=== PATIENT | male | born 1940 | race Caucasian/White ===

== ENCOUNTER 2017-02-04 10:30 | Emergency (ER) | payer BC, MEDICARE ==
--- NOTE | 2017-02-04 11:18 | ER Document Report ---
ED Medical Screen (RME) - General Chief Complaint: Urinary Problem Stated Complaint: BLOOD IN URINE Time Seen by Provider: 02/04/17 11:17 Notes: Patient states he has a history of bladder cancer with bladder tumors removed approximately 3 years ago. He denies any chemo or radiation. He states this morning he woke up with blood in his urine. He states he also feels a pressure and like he is unable to empty his bladder. He states that he recommends we put in a catheter. He denies being on any blood thinners. TRAVEL OUTSIDE OF THE [place] IN LAST 30 DAYS: No - Related Data Allergies/Adverse Reactions: naproxen [From Naprosyn] Allergy (Verified 02/04/17 10:34) Past Medical History - Social History Chew tobacco use (# tins/day): No Frequency of alcohol use: None Drug Abuse: None Renal/ Medical History: Denies: Hx Peritoneal Dialysis Physical Exam - Vital signs Vitals: Temp Pulse Resp BP Pulse Ox 98.3 F 92 16 189/89 H 99 02/04/17 10:32 02/04/17 10:32 02/04/17 10:32 02/04/17 10:32 02/04/17 10:32 Course - Vital Signs Vital signs: Temp Pulse Resp BP Pulse Ox 98.3 F 92 16 189/89 H 99 02/04/17 10:32 02/04/17 10:32 02/04/17 10:32 02/04/17 10:32 02/04/17 10:32
[2017-02-04 11:54] LABS: ABSOLUTE BASOPHILS # (AUTO) 0.1 10^3/uL (0.0-0.2); ABSOLUTE EOSINOPHILS # (AUTO) 0.3 10^3/uL (0.0-0.6); ABSOLUTE LYMPHOCYTES (AUTO) 0.8 10^3/uL (0.5-4.7); ABSOLUTE MONOCYTES (AUTO) 0.9 10^3/uL (0.1-1.4); ABSOLUTE NEUT (AUTO) 9.2 10^3/uL (1.7-8.2); BASOPHILS % (AUTO) 0.5 % (0-2); EOSINOPHILS % (AUTO) 2.4 % (0-6); HEMATOCRIT 38.9 % (37.9-51.0); HEMOGLOBIN 13.2 g/dL (13.5-17.0); HGB HCT DIFFERENCE 0.7; LYMPHOCYTES % (AUTO) 6.8 % (13-45); MEAN CORPUSCULAR HEMOGLOBIN 28.8 pg (27.0-33.4); MEAN CORPUSCULAR HGB CONC 33.8 g/dL (32.0-36.0); MEAN CORPUSCULAR VOLUME 85 fl (80-97); MONOCYTES % (AUTO) 8.2 % (3-13); RED BLOOD COUNT 4.58 10^6/uL (4.35-5.55); RED CELL DISTRIBUTION WIDTH 13.5 % (11.5-14.0); SEGMENTED NEUTROPHILS % (AUTO) 82.1 % (42-78); WHITE BLOOD COUNT 11.2 10^3/uL (4.0-10.5)
[2017-02-04 12:33] LABS: ALANINE AMINOTRANSFERASE 36 U/L (21-72); ALBUMIN 4.5 g/dL (3.5-5.0); ALKALINE PHOSPHATASE 127 U/L (38-126); ANION GAP 13 (5-19); ASPARTATE AMINO TRANSFERASE 48 U/L (17-59); BILIRUBIN,DIRECT 0.3 mg/dL (0.0-0.4); BILIRUBIN,TOTAL 0.4 mg/dL (0.2-1.3); BLOOD UREA NITROGEN 18 mg/dL (7-20); CALCIUM 9.4 mg/dL (8.4-10.2); CARBON DIOXIDE 30 mmol/L (22-30); CHLORIDE 99 mmol/L (98-107); CREATININE RESULT 0.71 mg/dL (0.52-1.25); GLUCOSE 135 mg/dL (75-110); POTASSIUM 4.2 mmol/L (3.6-5.0); SODIUM 141.8 mmol/L (137-145); TOTAL PROTEIN 8.4 g/dL (6.3-8.2)
--- NOTE | 2017-02-04 12:55 | ER Document Report ---
ED GI/ - General Chief Complaint: Urinary Problem Stated Complaint: BLOOD IN URINE Time Seen by Provider: 02/04/17 11:17 Notes: Patient is a 76-year-old male who presents emergency who presents emergency department via EMS stretcher with a chief complaint of gross hematuria. Patient has a history of bladder cancer status post resection 10 years ago without any chemoradiation and was following with urology up until 2011. Patient states since then he has not seen a urologist or had any issues up until 3 weeks ago when his urine started looking like pink lemonade and then over the past 2 days has been gross blood. He otherwise denies any weakness, lethargy or any other associated symptoms. Does admit to mild bladder pressure. Past medical history is significant for significant osteoarthritis with associated neuropathy that is rendered the patient and mobile and not able to ambulate and is a significant fall risk. Patient able is not able to bear weight at all or ambulate. Family states that they are not able to get him into a car safely due to previous history of falls. Past medical history significant for hypertension and yuy-[id number] diabetes TRAVEL OUTSIDE OF THE [place] IN LAST 30 DAYS: No - Related Data Allergies/Adverse Reactions: naproxen [From Naprosyn] Allergy (Verified 02/04/17 10:34) Past Medical History - Social History Smoking Status: Former Smoker Chew tobacco use (# tins/day): No Frequency of alcohol use: None Drug Abuse: None Family History: Reviewed & Not Pertinent Patient has suicidal ideation: No Patient has homicidal ideation: No - Past Medical History Cardiac Medical History: Reports: Hx Hypertension Endocrine Medical History: Reports: Hx Diabetes Mellitus Type 2 Renal/ Medical History: Denies: Hx Peritoneal Dialysis Review of Systems - Review of Systems Constitutional: No symptoms reported Cardiovascular: No symptoms reported Respiratory: No symptoms reported Gastrointestinal: No symptoms reported Genitourinary: See HPI Musculoskeletal: No symptoms reported -: Yes All other systems reviewed and negative Physical Exam - Vital signs Vitals: Temp Pulse Resp BP Pulse Ox 98.3 F 92 16 189/89 H 99 02/04/17 10:32 02/04/17 10:32 02/04/17 10:32 02/04/17 10:32 02/04/17 10:32 - Notes Notes: PHYSICAL EXAM GENERAL: Alert, interacts well. LUNGS: Clear to auscultation bilaterally, no wheezes, rales, or rhonchi. No respiratory distress. HEART: Regular rate and rhythm. No murmurs, gallops, or rubs. ABDOMEN: Soft, moderate distention, nontender. No guarding, rebound, or rigidity.. Bowel sounds present in all 4 quadrants. Suprapubic area nontender without palpable masses no inguinal lymphadenopathy Male : Deferred EXTREMITIES: Moves all 4 extremities spontaneously. No edema, radial and dorsalis pedis pulses 2/4 bilaterally. No cyanosis. NEUROLOGICAL: Alert and oriented x4. Normal speech. PSYCH: Normal affect, normal mood. SKIN: Warm, dry, normal turgor.stage 2 decubitus ulcer on right sacrum Course - Re-evaluation Re-evalutation: 02/04/17 16:23 Patient is a 76-year-old male who is hemodynamically stable, no acute distress and afebrile. Presentation is concerning for return of possible bladder mass given painless hematuria. CT the abdomen and pelvis reveals a 5 cm necrotic mass with presence of leukoesterase in the urine. Discussed results with patient who is requesting to be discharged home and will follow up with urology in [place] tomorrow. I did offer to consult with urology in [place] patient is declining. Patient states that he does want to follow-up with a urologist in [place] due to issues with transportation and not able to get in and out of his family members car due to issues with falls. Patient is not able to bear weight at all due to significant neuropathy. Did discuss case with oncologist global expansion sales director Dr. Cline who agrees with plan for urology consultation as an outpatient and otherwise to follow-up with her in the office. Discussed strict return precautions that would indicate return to the emergency department. Family and patient are agreeable with plan stable for discharge home. - Vital Signs Vital signs: Temp Pulse Resp BP Pulse Ox 97.8 F 88 16 182/82 H 99 02/04/17 17:18 02/04/17 17:18 02/04/17 17:18 02/04/17 17:18 02/04/17 17:18 - Laboratory Result Diagrams: 02/04/17 11:39 02/04/17 11:39 Laboratory results interpreted by me: 02/04/17 02/04/17 02/04/17 11:39 11:39 11:39 WBC 11.2 H Hgb 13.2 L Seg Neutrophils % 82.1 H Lymphocytes % 6.8 L Absolute Neutrophils 9.2 H Glucose 135 H Alkaline Phosphatase 127 H Total Protein 8.4 H Urine Protein 100 H Urine Blood LARGE H Ur Leukocyte Esterase TRACE H Urine Ascorbic Acid 20 H - Diagnostic Test Radiology reviewed: Image reviewed, Reports reviewed Discharge - Discharge Clinical Impression: Bladder mass Hematuria Qualifiers: Hematuria type: gross Qualified Code(s): R31.0 - Gross hematuria Condition: Stable Disposition: HOME, SELF-CARE Additional Instructions: There is evidence of a bladder mass on your CT scan today. This is concerning for cancer given your history. Please follow-up with urology tomorrow for biopsy.. Unable to schedule appointment then please touch base with urology. Otherwise please follow-up with Dr. Slade whose contact information is listed below. Please return to the emergency department with any worsening bleeding, lightheadedness, weakness. [facility] Address: [address] [place] [address] Prescriptions: Cephalexin Monohydrate [Keflex 500 mg Capsule] 500 mg PO BID 5 Days capsule Referrals: ZEESHAN KENDRICK MD [Primary Care Provider] - Follow up as needed SHANNA SLADE MD [ACTIVE STAFF] - Follow up in 1 week [facility] [Provider Group] - Follow up tomorrow
[2017-02-04 13:24] LABS: APPEARANCE,URINE CLOUDY; BILIRUBIN,URINE NEGATIVE (NEGATIVE); GLUCOSE, URINE NEGATIVE (NEGATIVE); KETONES,URINE NEGATIVE (NEGATIVE); LEUKOCYTE ESTERASE,URINE TRACE (NEGATIVE); NITRITE,URINE NEGATIVE (NEGATIVE); PROTEIN,URINE 100 mg/dL (NEGATIVE); URINE SPECIFIC GRAVITY 1.014; UROBILINOGEN,URINE NEGATIVE mg/dL (<2.0)
--- NOTE | 2017-02-04 15:38 | RADIOLOGY REPORT (SQ) ---
EXAM DESCRIPTION: CT ABD/PELVIS WITH IV ONLY COMPLETED DATE/TIME: 02/04/2017 3:04 pm REASON FOR STUDY: painless hematuria with h/o bladder ca COMPARISON: None. TECHNIQUE: CT scan of the abdomen and pelvis performed using helical scanning technique with dynamic intravenous contrast injection. No oral contrast. Images reviewed with lung, soft tissue, and bone windows. Reconstructed coronal and sagittal MPR images reviewed. Delayed images for evaluation of the urinary system also acquired. All images stored on PACS. All CT scanners at this facility use dose modulation, iterative reconstruction, and/or weight based d osing when appropriate to reduce radiation dose to as low as reasonably achievable (ALARA). [facility]: Dose Right [facility]: CareDose [facility]: Dose Right [facility]: Teradose 4D [facility]: [employer] CONTRAST TYPE AND DOSE: contrast/concentration: Isovue 370.00 mg/ml; Total Contrast Delivered: 81.0 ml; Total Saline Delivered: 45.0 ml RENAL FUNCTION: BUN 18 creatinine 0.7 RADIATION DOSE: CT Rad equipment meets quality standard of care and radiation dose reduction techniq ues were employed. CTDIvol: 16.6 - 19.4 mGy. DLP: 2111 mGy-cm.. LIMITATIONS: Positioning. FINDINGS: LOWER CHEST: No significant findings. No nodules or infiltrates. LIVER: Normal size. No masses. No dilated ducts. SPLEEN: Normal size. No focal lesions. PANCREAS: No masses. No significant calcifications. No adjacent inflammation or peripancreatic fluid collections. Pancreatic duct not dilated. GALLBLADDER: Surgically absent. ADRENAL GLANDS: No significant masses or asymmetry. RIGHT KIDNEY AND URETER: No solid masses. No significant calcifications. No hydronephrosis or hyd roureter. LEFT KIDNEY AND URETER: No solid masses. No significant calcifications. No hydronephrosis or hydr oureter. AORTA AND VESSELS: No aneurysm. RETROPERITONEUM: No retroperitoneal adenopathy, hemorrhage or masses. BOWEL AND PERITONEAL CAVITY: No masses or inflammatory changes. No free fluid or peritoneal masses. APPENDIX: Normal. PELVIS: Heterogeneous partially necrotic mass urinary bladder wall measuring about 5 cm in diameter. Indistinct tissue planes between the mass, prostate and seminal vesicles. No pelvic adenopathy. ABDOMINAL WALL: No masses. No hernias. BONES: No acute findings. OTHER: No other significant finding. IMPRESSION: Intrinsic bladder wall mass. No adenopathy. TECHNICAL DOCUMENTATION: JOB ID: [id number] Quality ID # [id number]: Final reports with documentation of one or more dose reduction techniques (e.g., Au tomated exposure control, adjustment of the mA and/or kV according to patient size, use of iterative reconstruction technique) 2010 [employer]- All Rights Reserved
[2017-02-04] MEDS ORDERED: CEPHALEXIN 500 MG CAPSULE PO ONE (16:32)
[2017-02-04 17:20] VITALS: BP 182/82
== END 2017-02-04 17:27 | disposition home or self-care (01) ==
LOC: ER 10:30
DX: R31.0 Gross hematuria (principal); N32.89 Other specified disorders of bladder; Z85.51 Personal history of malignant neoplasm of bladder; Z90.6 Acquired absence of other parts of urinary tract; M19.90 Unspecified osteoarthritis, unspecified site; E11.40 Type 2 diabetes mellitus with diabetic neuropathy, unspecified; Z79.4 Long term (current) use of insulin; Z91.81 History of falling; L89.152 Pressure ulcer of sacral region, stage 2; Z88.8 Allergy status to other drugs, medicaments and biological substances; Z87.891 Personal history of nicotine dependence
CPT/HCPCS: 99284; 36415; 87086; 85025; 80053; 81001; 74177; A9270

== ENCOUNTER → 2017-05-10 | Outpatient (CLI) | payer MEDICARE ==
[2017-05-10 10:48] LABS: ABSOLUTE BASOPHILS # (AUTO) 0.1 10^3/uL (0.0-0.2); ABSOLUTE EOSINOPHILS # (AUTO) 0.2 10^3/uL (0.0-0.6); ABSOLUTE LYMPHOCYTES (AUTO) 0.9 10^3/uL (0.5-4.7); ABSOLUTE MONOCYTES (AUTO) 0.7 10^3/uL (0.1-1.4); ABSOLUTE NEUT (AUTO) 8.2 10^3/uL (1.7-8.2); BASOPHILS % (AUTO) 0.7 % (0-2); EOSINOPHILS % (AUTO) 2.1 % (0-6); HEMATOCRIT 34.7 % (37.9-51.0); HEMOGLOBIN 11.5 g/dL (13.5-17.0); LYMPHOCYTES % (AUTO) 8.5 % (13-45); MEAN CORPUSCULAR HEMOGLOBIN 27.3 pg (27.0-33.4); MEAN CORPUSCULAR HGB CONC 33.2 g/dL (32.0-36.0); MEAN CORPUSCULAR VOLUME 82 fl (80-97); MONOCYTES % (AUTO) 6.8 % (3-13); PLATELET COUNT 328 10^3/uL (150-450); RED BLOOD COUNT 4.21 10^6/uL (4.35-5.55); RED CELL DISTRIBUTION WIDTH 13.5 % (11.5-14.0); SEGMENTED NEUTROPHILS % (AUTO) 81.9 % (42-78); TOTAL CELLS COUNTED % (AUTO) 100 %
[2017-05-10 11:13] LABS: BLOOD UREA NITROGEN 21 mg/dL (7-20)
== END ==
LOC: LAB 10:29
PROVIDERS: ATTEND Radiology Radiation Oncology
DX: C67.2 Malignant neoplasm of lateral wall of bladder (principal); C67.3 Malignant neoplasm of anterior wall of bladder
CPT/HCPCS: 36415; 82565; 84520; 85025

== ENCOUNTER → 2017-05-31 | Outpatient (CLI) | payer MEDICARE ==
[2017-05-31 10:54] LABS: BLOOD UREA NITROGEN 27 mg/dL (7-20)
== END ==
LOC: LAB 09:58
PROVIDERS: ATTEND Radiology Radiation Oncology
DX: C67.2 Malignant neoplasm of lateral wall of bladder (principal); C67.3 Malignant neoplasm of anterior wall of bladder
CPT/HCPCS: 36415; 82565; 84520

== ENCOUNTER 2017-06-10 09:53 | Emergency (ER) | payer MEDICARE ==
[2017-06-10] MEDS ORDERED: MORPHINE SULFATE 10 MG/ML INJ IV ONE (10:16)
--- NOTE | 2017-06-10 10:17 | ER Document Report ---
ED Medical Screen (RME) - General Chief Complaint: Abdominal Pain Stated Complaint: ABDOMINAL PAIN Time Seen by Provider: 06/10/17 10:15 Notes: Patient states he has a history of a bladder tumor. He states he received radiation for this tumor this morning. He states he has been having blood in his urine for several months starting yesterday he is having severe lower abdominal cramping and the sensation of having to have a bowel movement. He is also had 3 bowel movements since last night. TRAVEL OUTSIDE OF THE [place] IN LAST 30 DAYS: No - Related Data Allergies/Adverse Reactions: naproxen [From Naprosyn] Allergy (Verified 02/04/17 10:34) Past Medical History - Social History Chew tobacco use (# tins/day): No Frequency of alcohol use: None Drug Abuse: None - Past Medical History Cardiac Medical History: Reports: Hx Hypertension Endocrine Medical History: Reports: Hx Diabetes Mellitus Type 2 Renal/ Medical History: Denies: Hx Peritoneal Dialysis Physical Exam - Vital signs Vitals: Pulse Resp BP Pulse Ox 99 22 H 178/83 H 98 06/10/17 10:00 06/10/17 10:00 06/10/17 10:00 06/10/17 10:00 Course - Vital Signs Vital signs: Temp Pulse Resp BP Pulse Ox 99 20 178/83 H 98 06/10/17 10:00 06/10/17 10:07 06/10/17 10:00 06/10/17 10:00
[2017-06-10] MEDS ORDERED: HYDROMORPHONE HCL INJ/PF 2 MG/ML AMPULE IV ONE ×4 (10:20→18:38)
[2017-06-10 10:44] LABS: HEMATOCRIT 24.6 % (37.9-51.0); HEMOGLOBIN 8.3 g/dL (13.5-17.0); MEAN CORPUSCULAR HEMOGLOBIN 27.1 pg (27.0-33.4); MEAN CORPUSCULAR HGB CONC 33.5 g/dL (32.0-36.0); MEAN CORPUSCULAR VOLUME 81 fl (80-97); PLATELET COUNT 500 10^3/uL (150-450); RED BLOOD COUNT 3.05 10^6/uL (4.35-5.55); RED CELL DISTRIBUTION WIDTH 13.4 % (11.5-14.0); WHITE BLOOD COUNT 16.5 10^3/uL (4.0-10.5)
[2017-06-10 11:10] LABS: ALANINE AMINOTRANSFERASE 28 U/L (21-72); ALBUMIN 3.8 g/dL (3.5-5.0); ALKALINE PHOSPHATASE 99 U/L (38-126); ASPARTATE AMINO TRANSFERASE 24 U/L (17-59); BILIRUBIN,DIRECT 0.2 mg/dL (0.0-0.4); BILIRUBIN,TOTAL 0.2 mg/dL (0.2-1.3); BLOOD UREA NITROGEN 40 mg/dL (7-20); CALCIUM 9.6 mg/dL (8.4-10.2); CARBON DIOXIDE 20 mmol/L (22-30); CHLORIDE 100 mmol/L (98-107); GLUCOSE 134 mg/dL (75-110); POTASSIUM 5.1 mmol/L (3.6-5.0); SODIUM 140.9 mmol/L (137-145); TOTAL PROTEIN 7.5 g/dL (6.3-8.2)
[2017-06-10 11:16] LABS: ANION GAP 21 (5-19)
[2017-06-10 11:28] LABS: ABSOLUTE LYMPHOCYTES# (MANUAL) 1.3 10^3/uL (0.5-4.7); ABSOLUTE NEUTROPHILS# (MANUAL) 13.9 10^3/uL (1.7-8.2); BASOPHILS % (MANUAL) 2 % (0-2); EOSINOPHILS % (MANUAL) 0 % (0-6); LYMPHOCYTES % (MANUAL) 8 % (13-45); MONOCYTES % (MANUAL) 6 % (3-13); SEGMENTED NEUTROPHILS % (MAN) 84 % (42-78); TOTAL CELLS COUNTED 100
[2017-06-10 11:29] LABS: TOXIC GRANULATION SLIGHT
[2017-06-10 11:30] LABS: HYPOCHROMASIA SLIGHT; PLATELET COMMENT INCREASED; POLYCHROMASIA SLIGHT; TOXIC VACUOLATION PRESENT
[2017-06-10] MEDS ORDERED: NORMAL SALINE 1000 ML 1,000 ML IV PRN (12:13)
[2017-06-10] MEDS ORDERED: LIDOCAINE 2% URO-JET 5 ML KIT MM ONE ×2 (12:13→12:57)
--- NOTE | 2017-06-10 12:28 | ER Document Report ---
ED GI/ - General Chief Complaint: Abdominal Pain Stated Complaint: ABDOMINAL PAIN Time Seen by Provider: 06/10/17 10:15 Mode of Arrival: Wheelchair Information source: Patient, Relative - TRAVEL OUTSIDE OF THE [place] IN LAST 30 DAYS: No - HPI Patient complains to provider of: Abdominal pain Notes: 06/10/17 12:22 Patient is here with complaints of lower abdominal pain. The patient has a history of bladder cancer. He has had partial tumor removal and is currently undergoing radiation therapy. He had his first radiation treatment today. Patient is here in the emergency department with complaints of significant lower abdominal pain. He states that when he urinates, is typically just a few drips of blood. Feels like he is not able to pass any actual urine. He denies any fevers. Denies any nausea, vomiting, diarrhea. No constipation. No chest pain or shortness of breath. He was directed to come the emergency department by his radiation doctor for evaluation and treatment of his pain. - Related Data Allergies/Adverse Reactions: naproxen [From Naprosyn] Allergy (Verified 02/04/17 10:34) Past Medical History - Social History Smoking Status: Former Smoker Chew tobacco use (# tins/day): No Frequency of alcohol use: None Drug Abuse: None Family History: Reviewed & Not Pertinent Patient has suicidal ideation: No Patient has homicidal ideation: No - Past Medical History Cardiac Medical History: Reports: Hx Hypertension Endocrine Medical History: Reports: Hx Diabetes Mellitus Type 2 Renal/ Medical History: Denies: Hx Peritoneal Dialysis Review of Systems - Review of Systems -: Yes All other systems reviewed and negative Physical Exam - Vital signs Vitals: Pulse Resp BP Pulse Ox 99 22 H 178/83 H 98 06/10/17 10:00 06/10/17 10:00 06/10/17 10:00 06/10/17 10:00 - Notes Notes: GENERAL: alert, cooperative, nontoxic, no distress. HEAD: normocephalic, atraumatic EYES: conjunctiva pink without discharge, no external redness or swelling. EARS: no external swelling, no external redness NOSE: atraumatic, no external swelling MOUTH/THROAT: mucous membranes moist and pink, posterior pharynx without erythema, swelling, exudate. No trismus or drooling. NECK: soft, supple, full range of motion, no meningismus. CHEST: no distress, lungs clear and equal throughout. No wheezing, rales, rhonchi. CARDIAC: regular rate and rhythm, no murmur, normal capillary refill, normal pulses. No peripheral edema noted. ABDOMEN: Soft, tenderness to the suprapubic area with palpable bladder distention. BACK: full range of motion, no CVA tenderness. EXTREMITIES: Weakness to the lower extremities which is chronic. Upper extremities full range of motion. NEURO: alert and oriented x 3, no focal deficits, full range of motion of all extremities. PYSCH: appropriate mood, affect. Patient is cooperative. SKIN: pink, warm, dry, no rash. Course - Re-evaluation Re-evalutation: 06/10/17 14:[address] Quintana which is the patient's urologist. I am awaiting a call back at this time. 06/10/17 16:38 Multiple multiple attempts to pass a urinary catheter were made. We were unsuccessful and passing a urinary catheter the patient continues to have worsening lower abdominal pain likely secondary to urinary obstruction from either his tumor or blood. Patient is noted to have a new anemia with a hemoglobin of 8, is noted to have a new renal failure with a creatinine of 2.5. Patient will require admission to the hospital for further evaluation and management of all of his symptoms. Unfortunately we do not have urology auto emissions technician at this time, therefore I am needing to transfer the patient to a facility that has urology available. I have called [facility] and am waiting for a return phone call at this time. The patient has been given medications for pain control as well as a dose of Rocephin due to his elevated white count and the potential for urinary tract infection is I am not able to test his urine to rule this out. Patient does not appear to be septic at this time is not tachycardic, febrile or hypotensive. 06/10/17 16:[address] Lopez, the urologist at [facility]. States that they will call us back with an admitting service but that he is happy to see the patient for urology service. 06/10/17 18:[address] Ann at [facility]. He has accepted the patient for admission. Patient will be transferred to [facility] for admission for his renal failure as well as consult by urology for urinary obstruction. Patient was noted to have a leukocytosis of 16-1/2. I am unable to obtain a urine specimen, therefore the patient was given Rocephin prophylactically. This point we are currently awaiting for a bed in order to transfer the patient. Attempting to keep the patient as comfortable as possible with pain medication, he was also given a dose of Ativan to help relax him. The patient as well as his family updated on all plans. - Vital Signs Vital signs: Temp Pulse Resp BP Pulse Ox 97.3 F 88 18 159/81 H 99 06/10/17 17:17 06/10/17 17:17 06/10/17 17:17 06/10/17 17:17 06/10/17 17:17 - Laboratory Result Diagrams: 06/10/17 10:25 06/10/17 10:25 Laboratory results interpreted by me: 06/10/17 06/10/17 10:25 10:25 WBC 16.5 H RBC 3.05 L Hgb 8.3 L Hct 24.6 L Plt Count 500 H Seg Neuts % (Manual) 84 H Lymphocytes % (Manual) 8 L Abs Neuts (Manual) 13.9 H Abs Basophils (Manual) 0.3 H Potassium 5.1 H Carbon Dioxide 20 L Anion Gap 21 H BUN 40 H Creatinine 2.41 H Est GFR ( Amer) 32 L Est GFR (Non-Af Amer) 26 L Glucose 134 H - Diagnostic Test Radiology reviewed: Image reviewed, Reports reviewed - CT the abdomen and pelvis shows increasing size in known bladder mass. Left adrenal mass, cannot rule out metastasis. Discharge - Discharge Clinical Impression: Acute retention of urine Bladder cancer Qualifiers: Bladder location: unspecified site Qualified Code(s): C67.9 - Malignant neoplasm of bladder, unspecified Renal failure Qualifiers: Renal failure chronicity: acute Acute renal failure type: unspecified Qualified Code(s): N17.9 - Acute kidney failure, unspecified Anemia Qualifiers: Anemia type: unspecified type Qualified Code(s): D64.9 - Anemia, unspecified Condition: Serious Disposition: [facility] Referrals: ZEESHAN KENDRICK MD [Primary Care Provider] - Follow up as needed
[2017-06-10] MEDS ORDERED: FENTANYL CITRATE INJ/PF 100 MCG/2 ML AMPUL IV ONE (12:57)
--- NOTE | 2017-06-10 13:35 | RADIOLOGY REPORT (SQ) ---
EXAM DESCRIPTION: CT ABD/PELVIS NO ORAL OR IV COMPLETED DATE/TIME: 06/10/2017 1:13 pm REASON FOR STUDY: low abdo pain, hx of bladder ca COMPARISON: 02/04/2017 TECHNIQUE: CT scan of the abdomen and pelvis performed without intravenous or oral contrast. Images reviewed with lung, soft tissue, and bone windows. Reconstructed coronal and sagittal MPR images revi ewed. All images stored on PACS. All CT scanners at this facility use dose modulation, iterative reconstruction, and/or weight based d osing when appropriate to reduce radiation dose to as low as reasonably achievable (ALARA). [facility]: Dose Right [facility]: CareDose [facility]: Dose Right [facility]: Teradose 4D [facility]: [employer] RADIATION DOSE: CT Rad equipment meets quality standard of care and radiation dose reduction techniq ues were employed. CTDIvol: 13.4 mGy. DLP: 823 mGy-cm.mGy. LIMITATIONS: None. FINDINGS: LOWER CHEST: No acute findings. NON-CONTRASTED LIVER, SPLEEN, ADRENALS: New left adrenal nodule measuring about 2.7 cm and 39 HU. PANCREAS: No masses. No peripancreatic inflammatory changes. GALLBLADDER: Surgically absent. RIGHT KIDNEY AND URETER: No suspicious masses. Assessment limited by lack of IV contrast. Renal juve culi measuring up to about 10 mm. No hydronephrosis or hydroureter. LEFT KIDNEY AND URETER: No suspicious masses. Assessment limited by lack of IV contrast. No signifi cant calcifications. No hydronephrosis or hydroureter. AORTA AND RETROPERITONEUM: No aneurysm. No retroperitoneal masses or adenopathy. BOWEL AND PERITONEAL CAVITY: No obvious masses or inflammatory changes. No free fluid. APPENDIX: Normal. PELVIS, BLADDER, AND ABDOMINAL WALL:Previously described intrinsic urinary bladder mass measures abou t 9 cm in maximum diameter, previously about 5 cm. Some of the apparent increase may be related to c oncurrent hematoma. BONES: No acute findings. OTHER: No other significant finding. IMPRESSION: 1. Increase in size of intrinsic urinary bladder mass. 2. New left adrenal lesion. Cannot exclude metastasis. 3. Nonobstructing right renal calculi. COMMENT: Quality ID # [id number]: Final reports with documentation of one or more dose reduction techniques (e.g., Automated exposure control, adjustment of the mA and/or kV according to patient size, use of iterative reconstruction technique) TECHNICAL DOCUMENTATION: JOB ID: [id number] [employer]- All Rights Reserved Reading location - IP/workstation name: [email or web address]
[2017-06-10] MEDS ORDERED: CEFTRIAXONE 1 GM/D5W RTU 50 ML IV ONE (14:16)
[2017-06-10] MEDS ORDERED: CEFTRIAXONE INJ 1000 MG VIAL IV ONE (15:30)
[2017-06-10] MEDS ORDERED: ONDANSETRON HCL INJ/PF 4 MG/2 ML SDV IV ONE (16:19)
[2017-06-10] MEDS ORDERED: LORAZEPAM 0.5 MG TABLET PO ONE (17:15)
[2017-06-10 19:33] VITALS: BP 174/90
== END 2017-06-10 19:50 | disposition short-term general hospital (02) ==
LOC: ER 09:53
DX: C67.9 Malignant neoplasm of bladder, unspecified (principal); N17.9 Acute kidney failure, unspecified; R33.9 Retention of urine, unspecified; D64.9 Anemia, unspecified; E27.9 Disorder of adrenal gland, unspecified; R10.30 Lower abdominal pain, unspecified; R53.1 Weakness; D72.829 Elevated white blood cell count, unspecified; I10 Essential (primary) hypertension; E11.9 Type 2 diabetes mellitus without complications; Z88.8 Allergy status to other drugs, medicaments and biological substances; Z87.891 Personal history of nicotine dependence
CPT/HCPCS: 96376; 99285; 96361; 51702; 96375; 96365; 36415; 85025; 80053; 74176; J3010; J1170; J0696; J2405; J7030; A9270 ×2; J3490